=== PATIENT | male | born 1955 | race Caucasian/White ===

== ENCOUNTER 2017-01-09 16:07 | Emergency (ER) | payer OTHER ==
[~2017-01-09] VITALS: Ht 167.6 cm; Wt 79.4 kg
[2017-01-09 17:07] LABS: URINE BILIRUBIN - DIPSTICK NEGATIVE (NEG); URINE BLOOD NEGATIVE (NEG)
[2017-01-09 17:09] LABS: LYMPH # 1.9 K/mm3 (0.7-4.5); LYMPH % 38.8 % (10-50)
--- NOTE | 2017-01-09 17:16 | RADIOLOGY REPORT PS360 ---
CHEST(2 VIEWS-NOT PORTABLE) HISTORY: L RIB PAIN ORDERING PHYSICIAN: PATIENT AGE: 61 years COMPARISON: None available FINDINGS: The cardiomediastinal silhouette and pulmonary vascularity are within normal limits. The lungs are clear without infiltrates, suspicious nodules, or pleural effusions. Only minimal density is noted in the left upper lobe laterally nonspecific and may be due to overlying artifact. This has somewhat longitudinal appearance No acute bony abnormalities. IMPRESSION: No acute finding
--- OUTSIDE RECORDS SUMMARY | 2017-01-09 17:16 | External Medical Summary Rpt ---
Author Author , Organization [employer] Address Unknown Phone Unavailable Purpose Continuity of Care Document - 11-21-2016 through 2016
--- OUTSIDE RECORDS SUMMARY | 2017-01-09 17:16 | External Medical Summary Rpt ---
Author Author [employer] Organization [employer] Address Unknown Phone Unavailable Purpose Continuity of Care Document - through 2016
--- OUTSIDE RECORDS SUMMARY | 2017-01-09 17:17 | External Medical Summary Rpt ---
Demographics Preferred Language Norwegian Marital Status Unknown Rastafarian Affiliation Unknown Race Unknown Ethnic Group Unknown Author Author , Organization [employer] Address Unknown Phone Unavailable Purpose Continuity of Care Document - through 2016 Immunization No patient found.
--- OUTSIDE RECORDS SUMMARY | 2017-01-09 17:17 | External Medical Summary Rpt ---
Demographics Preferred Language Libyan Marital Status Unknown Druze Affiliation Unknown Race Unknown Ethnic Group Unknown Author Author , Organization [employer] Address Unknown Phone Unavailable Purpose Continuity of Care Document - through 2016 Immunization No patient found.
--- OUTSIDE RECORDS SUMMARY | 2017-01-09 17:18 | External Medical Summary Rpt ---
Author Author [facility] Keating, [employer] Organization [employer] Address Unknown Phone Unavailable Results Urea nitrogen [Mass/volume] in Serum or Plasma Observa Value Referen Units Interpr Notes Date tion ce etation Range Urea 7 - 18 mg/dL Normal No November 21 nitrogen informati 2016 [Mass/vol on in 10:58 AM ume] in source Serum or data Plasma CREATININE Observa Value Referen Units Interpr Notes Date tion ce etation Range Creatinin 0.70 - mg/dL Normal No November 21 e 1.30 informati 2016 [Mass/vol on in 10:58 AM ume] in source Serum or data Plasma Estimated >60 ML/MIN No REFERENCE November 21 informati RANGE: 2017 glomerula on in >60 10:58 AM r source ML/MIN/1. filtratio data 73 SQUARE n rate METERSIf (GF this patient is -A merican, then multiply theresult by 1.210.
[2017-01-09 17:26] LABS: BUN 12 mg/dL (7-18); GFR (ESTIMATED) 86 ML/MIN (>60)
--- NOTE | 2017-01-09 17:58 | Emergency Room Report ---
History of Present Illness Time Seen by 1714 Presenting Problem in Triage Pt arrived:Walked Presenting Problem:PAIN IN THE L RIB PAIN , SHARP PAIN THAT COMES AND GOES LAST APPROX 2-3 SEC PAIN STARTED YESTERDAY Onset of symptoms date/time:01/08/1708/26/1744 or onset unknown for: Treatment Prior to Arrival: [employer] Provided by: Sepsis Risk Assessment: Temp: 98.4 B/P: 131/82 MAP: 112 Pulse: 58 Resp: 18 Recent fever? N Clinical Suspician of Infection? N Mental Status: 1 - Regular (Normal Baseline) Sepsis Risk:Low Sepsis Risk Have you (or family members/close friends) recently traveled outside the [place]? N If Yes, where/when: Have you had exposure to infectious disease within the past month? N TB? Other? Specify: Patient with two separate episodes of left rib pain, sharp, acute, while at rest. First episode occurred last night, lasting a few seconds, with another episode thirty minutes later. Seemed better when standing. Never had chest pain, palpitations, N/V, SOB, diaphoresis, syncope, or near syncope. No hematuria. Had similar episode earlier this morning, also brief, sharp, then a repeat episode thirty minutes later. No abdominal pain, no flank pain, no blood from above or below. No complaints currently. ALLERGIES Coded Allergies: No Known Allergies (11/21/16) History Medical History General CAD? Yes Angina: No SD: No Hypertension? Yes Hyperlipidemia? Yes CHF? No DVT? No PE? No COPD? No Asthma? No Anemia? No GERD? No Gastric ulcers? No GI Bleed? No Hernia? No Thyroid Problems? No Hypothyroidism? No CVA? No Seizures? No Diabetes? No End Stage Renal Disease? No UTI? No Stones? No BPH? No GB Disease: No Nephritic Syndrome? No Asplenia? No Hepatitis? No Sickle Cell Disease? No Arthritis? No Migraines? No Cataracts? No Glaucoma? No MRSA? No HIV? No TB? No Anxiety? No Depression? No Cancer? No Site: N More? No Immunization Hx DT/Tetanus 03/2016 Surgical Hx Previous Surgery?N Social History Smoking Hx Smoker: Never Smoker Tobacco: No Alcohol Alcohol: No Review of Systems All Other Systems Reviewed and Negative Respiratory see HPI Physical Exam Vital Signs Vital Signs Date Time Temp Pulse Resp B/P Pulse O2 O2 Flow FiO2 Ox Delivery Rate 01/09 1715 98.4 58 18 131/82 98 01/09 1620 98.4 65 20 165/86 98 General Appearance normal appearance, WD/WN, no apparent distress Eye Exam - bilateral eye normal exam, bilateral eye PERRL Neck normal inspection, non-tender, supple, full range of motion Respiratory Status Yes: trachea midline, chest symmetrical, non tender chest. No: respiratory distress, tender on palpation, use of accessory muscles, pain on inspiration, pain on expiration, productive cough, non productive cough. Lung Sounds bilateral: normal breath sounds, lungs clear. Cardiovascular normal exam, regular rate/rhythm, no peripheral edema, no gallop, no JVD, no murmur, no rub Gastrointestinal normal bowel sounds, normal exam, non tender, soft, no organomegaly, no pulsatile mass, no guarding, no rebound Back no vertebral tenderness, bowel/bladder continent, gait normal Extremities normal range of motion, normal inspection, no calf tenderness, no pedal edema Strength 5 Upper Ext (L), 5 Upper Ext (R), 5 Lower Ext (L), 5 Lower Ext (R) Neurologic alert, normal exam, no motor/sensory deficits, oriented x 3 Skin intact, normal color Medical Decision Making LABS/Meds/Orders Pt receiving controlled substance in ED? No Roger was queried for this patient? No Results/Orders Laboratory Tests 01/09/17 1650: TSH Pending, Urine Color YELLOW, Urine Appearance CLEAR, Urine pH 7.5, Ur Specific Johnston 1.010, Urine Protein NEGATIVE, Urine Ketones NEGATIVE, Urine Blood NEGATIVE, Urine Nitrate NEGATIVE, Urine Bilirubin NEGATIVE, Urine Urobilinogen 0.2, Ur Leukocyte Esterase NEGATIVE, Urine RBC NONE, Urine WBC NONE , Ur Squamous Epith Cells 3-5, Urine Bacteria NONE, Urine Glucose NEGATIVE 01/09/17 1635: Sodium 141, Potassium 3.6, Chloride 103, Carbon Dioxide 28, BUN 12, Creatinine 0.9, Estimated Creat Clear 98, Estimated GFR (MDRD) 86, Glucose 109 H, Calcium 8.9, Total Bilirubin 0.5, AST 18, ALT 31, Alkaline Phosphatase 42 L, Creatine Kinase 110, CK-MB (CK-2) Rel Index 0.7, CK and CKMB Interp 0.8, Troponin I < 0.02, Total Protein 7.7, Albumin 4.4, Globulin 3.3 H, Albumin/Globulin Ratio 1.3, WBC 4.8, RBC 4.40 L, Hgb 15.0, Hct 40.6 L, MCV 92.3, RDW 13.5, Plt Count 213, MPV 8.1, Gran % 51.6, Gran # 2.5, Lymphocytes % 38.8, Monocytes % 7.9, Eosinophils % 1.3, Basophils % 0.5, Lymphocytes # 1.9, Monocytes # 0.4, Eosinophils # 0.1, Basophils # 0.0, PUBS MCHC 36.8 H, MCH 34.0 H Current Medication Orders Sig/Xuan Start time Last Medication Dose Route Stop Time Status Admin Sodium Chloride 10 ML PRN PRN 01/09 1645 AC IV 01/10 1632 Orders Procedure Date/time Status KUB (SINGLE VIEW) 01/09 1735 Active URINALYSIS/COMPLETE 01/09 1658 Complete THYROID STIMULATING HORMONE 01/09 1658 Active ELECTROCARDIOGRAM REQUEST 01/09 1633 Active IV SALINE LOCK 01/09 1633 Active CBC WITH AUTO DIFF 01/09 1633 Complete CARDIAC ENZYMES 01/09 1633 Complete CHEM 12 PROFILE 01/09 1633 Complete 12 LEAD EKG-REYES (INITIAL) 01/09 1630 Active CM/EKG CM/EKG EKG rate, rhythm, no evid. of ischemic chgs, no ectopy, normal QRS, normal GA , normal EKG (SB 56) XRAY/CT/US XRAY/CT/US XRAY chest, abdomen (increased stool neg acute) XR interpretation by reviewed by me (report reviewed) Xray Results normal/NAD, no infiltrates, normal heart size, no hematoma seen, normal lung inflation wilmar Time results known: 1800 CT Results normal/NAD (abdomen read by EDMD) Departure Departure Time of Disposition 181 Disposition DC Home or Self Care(routine) Clinical Impression Primary Impression: Rib pain on left side Secondary Impressions: Constipation Qualifiers: Constipation type: unspecified constipation type Qualified Code: K59.00 - Constipation, unspecified Condition STABLE Referrals Serina Chamberlain MD (Family) Patient Instructions Constipation (Alternative Therapy) Additional Instructions Miralax over the counter, one scoop nightly in juice, recommend clear fluids overnight, see Dr. Chamberlain this week for follow up. Go to closest ER if any concerns or worsening symptoms. Discharge Counseling Counseled pt/family regarding diagnosis, test results, medications/RX, home care, follow up needs ED Critical Care Critical Care No at 2038
[2017-01-09 18:26] VITALS: BP 131/82
--- NOTE | 2017-01-09 19:26 | RADIOLOGY REPORT PS360 ---
KUB (SINGLE VIEW) HISTORY: Abdominal pain sharp lower rib pain intermittent ORDERING PHYSICIAN: Veronica Obando MD PATIENT AGE: 61 years COMPARISON: None FINDINGS: There is a moderate amount of retained colonic feces. No intestinal obstruction apparent. There are prosthetic calcifications. 2 calcifications are present in the left aspect of the pelvis and could be related to phleboliths. CT may confirm. IMPRESSION: Prosthetic and nonspecific pelvic calcifications with a moderate amount retained colonic feces
== END 2017-01-09 18:27 | disposition home or self-care (01) ==
LOC: ER 16:07
PROVIDERS: Emergency Medicine
DX: R07.81 Pleurodynia (principal); K59.00 Constipation, unspecified; K31.9 Disease of stomach and duodenum, unspecified